=== PATIENT | male | born 1990 | race Caucasian/White ===

== ENCOUNTER 2021-03-30 19:02 | Emergency (ER) | payer MEDICAID ==
[~2021-03-30] VITALS: Ht 190.5 cm; Wt 103.0 kg
[2021-03-30] MEDS ORDERED: NALOXONE PREFILLED SYRINGE 2 MG/2 ML SYRINGE ONE (19:27)
[2021-03-30] MEDS ORDERED: ONDANSETRON HCL/PF 4 MG/2 ML VIAL ONE ×2 (19:28→20:16)
[2021-03-30] MEDS: NALOXONE PREFILLED SYRINGE 2 MG/2 ML SYRINGE IV ONE (19:34)
[2021-03-30 19:38] LABS: BASOPHILS # (AUTO) 0.1 K/uL (0.0-0.2); BASOPHILS % (AUTO) 0.8 % (0.0-2.0); EOSINOPHILS % (AUTO) 1.1 % (0.0-6.0); HEMATOCRIT 47 % (39-51); HEMOGLOBIN 15.9 g/dL (13.5-17.5); LYMPHOCYTES # (AUTO) 1.4 K/uL (0.8-4.8); MEAN CORPUSCULAR HGB CONC 34 g/dl (31.0-36.0); MEAN CORPUSCULAR VOLUME 92 fL (80-96); MONOCYTES # (AUTO) 0.7 K/uL (0.1-1.30); MONOCYTES % (AUTO) 7.2 % (2.0-12.0); NEUTROPHILS # (AUTO) 7.7 K/uL (1.8-8.9); NEUTROPHILS % (AUTO) 76.9 % (43.0-81.0); PLATELET COUNT (AUTO) 233 K/uL (150-450); RED BLOOD CELL COUNT(AUTO) 5.09 MIL/uL (4.5-6.0); WHITE BLOOD COUNT (AUTO) 10.1 K/uL (4.3-11.0)
[2021-03-30 19:48] LABS: CALCIUM, SERUM 8.3 mg/dL (8.5-10.1); CARBON DIOXIDE 33 mmol/L (21-32); CHLORIDE 105 mmol/L (98-107); CREATININE 1.2 mg/dL (0.6-1.3); GLUCOSE 143 mg/dL (74-106); POTASSIUM 3.5 mmol/L (3.5-5.1); SODIUM SERUM 143 mmol/L (136-145); UREA NITROGEN, BLOOD 13 mg/dL (7-18)
[2021-03-30 19:54] LABS: ACETAMINOPHEN < 2 ug/ml (10-30); ALANINE AMINOTRANSFERASE 34 U/L (12-78); ALBUMIN 3.9 g/dL (3.4-5.0); ALCOHOL, BLOOD < 3 mg/dL (0-0); ALKALINE PHOSPHATASE 81 U/L (46-116); ASPARTATE AMINOTRANSFERASE 27 U/L (15-37); BILIRUBIN,DIRECT 0.1 mg/dL (0.0-0.2); BILIRUBIN,TOTAL 0.2 mg/dL (0.2-1.0); TOTAL PROTEIN, SERUM 7.2 g/dL (6.4-8.2)
[2021-03-30] MEDS: IV NS 0.9% 500 ML BAG IV ONE (20:18)
[2021-03-30] MEDS: ONDANSETRON HCL/PF 4 MG/2 ML VIAL IV ONE (20:18)
[2021-03-30] MEDS ORDERED: NALO4SPR NS (21:12)
--- NOTE | 2021-03-30 21:27 | NUR ---
PT AMBULATORY W/ STEAY GAITS, A, OX4. PO INTAKE APOLONIA WELL. STABLE FOR D/C. IV removed. Catheter intact and site benign. Pressure and 4x4 applied to site. No bleeding noted.Patient discharged to home in stable condition. Rx and Written and verbal after care instructions given. Patient verbalizes understanding of instruction.
[2021-03-30 22:06] VITALS: BP 135/76
== END 2021-03-30 21:06 | disposition home or self-care (01) ==
LOC: ER 19:06
DX: T40.411A Poisoning by fentanyl or fentanyl analogs, accidental (unintentional), initial encounter (principal); R40.0 Somnolence; F12.90 Cannabis use, unspecified, uncomplicated; Y92.89 Other specified places as the place of occurrence of the external cause
CPT/HCPCS: 36415; 71045; 80048; 80076; 80143; 80320; 85025; 96361; 96374; 96375; 99284; J2310; J2405 ×2; J7030 ×2; G0480

== ENCOUNTER 2022-06-14 12:04 | Emergency (ER) | payer MEDICAID ==
[~2022-06-14] VITALS: Ht 190.5 cm; Wt 90.7 kg
[~2022-06-14 12:04] MED LIST: NALO4SPR NS
[2022-06-14] MEDS ORDERED: NAPROXEN 500 MG TABLET PO SCH (13:00)
[2022-06-14] MEDS ORDERED: CYCLOBENZAPRINE 10 MG TABLET PO ONE (13:00)
[2022-06-14] MEDS ORDERED: CYCLOBENZAPRINE 10 MG TABLET ONE (13:15)
[2022-06-14] MEDS ORDERED: NAPROXEN 250 MG TABLET ONE (13:15)
[2022-06-14] MEDS ORDERED: KETOROLAC TROMETHAMINE INJ 60 MG/2 ML VIAL IM ONE ×2 (14:00→14:03)
[2022-06-14] MEDS ORDERED: IBUP-1953 PO (14:10)
[2022-06-14] MEDS ORDERED: LIDO30AD10 TP (14:10)
[2022-06-14] MEDS ORDERED: CYCL5TAB PO (14:10)
[2022-06-14 14:37] VITALS: BP 138/77
== END 2022-06-14 14:38 | disposition home or self-care (01) ==
LOC: ER 12:14
DX: S13.4XXA Sprain of ligaments of cervical spine, initial encounter (principal); M24.851 Other specific joint derangements of right hip, not elsewhere classified; F17.200 Nicotine dependence, unspecified, uncomplicated; Z79.899 Other long term (current) drug therapy; V49.49XA Driver injured in collision with other motor vehicles in traffic accident, initial encounter; Y93.89 Activity, other specified; Y92.89 Other specified places as the place of occurrence of the external cause; Y99.8 Other external cause status
CPT/HCPCS: 99283; 96372; 72170; J1885